=== PATIENT | female | born 1950 | race Caucasian/White ===

== ENCOUNTER 2021-07-03 10:34 | Outpatient (CLI) | payer MEDICARE | END 2021-07-03 10:35 | disposition home or self-care (01) | LOC: BICMAMMO 10:34 | PROVIDERS: ATTEND Physician Assistant | DX: Z12.31 Encounter for screening mammogram for malignant neoplasm of breast (principal) | CPT/HCPCS: 77063; 77067 ==

== ENCOUNTER 2022-09-07 09:28 | Outpatient (CLI) | payer MEDICARE | END 2022-09-07 09:29 | disposition home or self-care (01) | LOC: BICMAMMO 09:28 | PROVIDERS: ATTEND Physician Assistant | DX: Z12.31 Encounter for screening mammogram for malignant neoplasm of breast (principal); Z80.3 Family history of malignant neoplasm of breast | CPT/HCPCS: 77063; 77067 ==

== ENCOUNTER 2023-10-10 09:03 | Outpatient (CLI) | payer MEDICARE | END 2023-10-10 09:04 | disposition home or self-care (01) | LOC: BICMAMMO 09:03 | PROVIDERS: ATTEND Physician Assistant | DX: Z12.31 Encounter for screening mammogram for malignant neoplasm of breast (principal); Z80.3 Family history of malignant neoplasm of breast | CPT/HCPCS: 77063; 77067 ==

== ENCOUNTER 2024-07-09 07:53 | Outpatient (CLI) | payer MEDICARE | END 2024-07-09 07:54 | disposition home or self-care (01) | LOC: CT 07:53 | PROVIDERS: ATTEND Orthopaedic Surgery | DX: M17.12 Unilateral primary osteoarthritis, left knee (principal) ==

== ENCOUNTER 2024-07-12 10:04 | Outpatient (CLI) | payer MEDICARE ==
[2024-07-12 12:12] LABS: #Basophils 0.06 10x3/uL (0.0-0.2); %Basophils 0.8 % (0.0-1.0); %Eosinophils 1.4 % (0.0-10.0); %Lymphocytes 22.1 % (21.0-51.0); %Monocytes 6.7 % (0.0-10.0); Hemoglobin 13.1 g/dL (12.0-16.0); Mean Corpuscular Hemoglobin 28.1 pg (27.0-31.0); Mean Corpuscular Volume 87.8 fL (78.0-98.0); Mean Platelet Volume 9.3 fL (7.4-10.4); Platelet Count 306 10x3/uL (130-400); RBC Distribution Width 14.5 % (11.5-14.5); Red Blood Cell (RBC) Count 4.67 mill/uL (4.20-5.40)
[2024-07-12 12:20] LABS: Bilirubin Negative (Negative); Blood, Urine Negative (Negative); Clarity Clear (Clear); Glucose, Urine (Dipstick) Normal (Negative); Ketone, Urine Negative (Negative); Leukocyte Negative Leu/uL (Negative); Nitrite Negative (Negative); Protein, Urine (Dipstick) Negative (Neg-Trace); Specific Gravity, Urine 1.002 (1.002-1.036); Urobilinogen Normal mg/dL (Less than 2)
[2024-07-12 12:26] LABS: INR-International Normal Ratio 0.9; Prothrombin Time 12.1 sec (12.0-14.7)
[2024-07-12 12:29] LABS: Anion Gap 16 mmol/L (10-20); BUN (Urea Nitrogen) 10 mg/dL (9.8-20.1); Calc. Creatinine Clearance 0 mL/min (70-130); Calcium 8.9 mg/dL (7.8-10.44); Carbon Dioxide 23 mmol/L (23-31); Chloride 102 mmol/L (98-107); Estimated GFR 81; Glucose 104 mg/dL (83-110); Potassium 3.6 mmol/L (3.5-5.1); Sodium 137 mmol/L (136-145)
== END 2024-07-12 10:05 | disposition home or self-care (01) ==
LOC: LABBT 10:04
PROVIDERS: ATTEND Orthopaedic Surgery
DX: Z01.818 Encounter for other preprocedural examination (principal); M17.0 Bilateral primary osteoarthritis of knee; I70.0 Atherosclerosis of aorta
CPT/HCPCS: 71046; 80048; 81003; 85025; 85610; 87081; 93005; 93010

== ENCOUNTER 2024-07-16 09:59 | Observation (INO) | payer MEDICARE ==
[2024-07-12 10:26] VITALS: BMI 29.2
[2024-07-16] MEDS ORDERED: Tranexamic Acid 1,000 MG/10 ML VIAL ONE (10:56)
[2024-07-16] MEDS ORDERED: Vancomycin 1 GM/200 ML (FROZEN) BAG ONE (10:56)
[2024-07-16] MEDS ORDERED: Sodium Chloride 0.9% 100 ML ONE (10:57)
[2024-07-16] MEDS ORDERED: Famotidine/PF 20 mg/2ml Vial ONE (11:05)
[2024-07-16] MEDS ORDERED: Acetaminophen 500 MG TAB ONE (11:05)
[2024-07-16] MEDS ORDERED: fentaNYL 50 mcg/mL 1 mL Vial ONE ×3 (11:08→14:33)
[2024-07-16] MEDS ORDERED: Bupivacaine PF 0.5% 30 ML VIAL ONE (11:09)
[2024-07-16] MEDS ORDERED: Midazolam HCl 2 mg/2 ml Vial ONE (11:09)
[2024-07-16] MEDS ORDERED: Bupivacaine 0.25% HCL 30 ML VIAL ONE (11:25)
[2024-07-16] MEDS ORDERED: Bupivacaine HCl 0.5%/Epinephrine 1:200,000/PF 30 ml Vial ONE (11:30)
[2024-07-16] MEDS ORDERED: Lidocaine 1% (PF) 30 ML VIAL ONE (11:33)
[2024-07-16] MEDS ORDERED: methylPREDNISolone Acetate 40 mg/ml Vial ONE (11:34)
[2024-07-16] MEDS ORDERED: fentaNYL 50 mcg/mL 1 mL Vial SLOW IVP PRN (11:45)
[2024-07-16] MEDS ORDERED: Ondansetron PF 4 MG/2 ML Vial IVP PRN ×2 (11:45→13:29)
[2024-07-16] MEDS ORDERED: Ropivacaine 0.2% 550 ML 550 ML NERVE BLCK SCH (11:45)
[2024-07-16] MEDS ORDERED: Zolpidem Tartrate 5 MG TAB PO PRN ×2 (11:45→13:29)
[2024-07-16] MEDS ORDERED: traMADol HCl 50 MG TAB PO PRN ×2 (11:45)
[2024-07-16] MEDS ORDERED: Promethazine HCl 25 MG/ML VIAL IM PRN ×2 (11:45→13:29)
[2024-07-16] MEDS ORDERED: CEFAZOLIN 2 GM VIAL ONE (11:48)
[2024-07-16] MEDS ORDERED: PROPOFOL 20 ML ONE (11:50)
[2024-07-16] MEDS ORDERED: Lidocaine 1% PF 5 ML VIAL ONE (11:51)
[2024-07-16] MEDS ORDERED: Ondansetron PF 4 MG/2 ML Vial ONE (11:51)
[2024-07-16] MEDS ORDERED: Dexamethasone 4 mg/ml Vial ONE (11:51)
[2024-07-16] MEDS ORDERED: fentaNYL PF 100 MCG/2 ML SYRINGE ONE (12:10)
[2024-07-16] MEDS ORDERED: ePHEDrine Sulfate 50 MG/10 ML VIAL ONE (12:15)
[2024-07-16] MEDS ORDERED: Acetaminophen 325 MG TAB PO PRN (13:29)
[2024-07-16] MEDS ORDERED: diphenhydrAMINE 25 MG CAP PO PRN (13:29)
[2024-07-16] MEDS ORDERED: ALPRAZolam 1 MG TAB PO PRN (13:30)
[2024-07-16] MEDS: CEFAZOLIN 2 GM in Sodium Chloride 0.9% 100 ML IVPB SCH ×2 (18:14→20:50)
[2024-07-16] MEDS: Tranexamic Acid 1,000 MG in Sodium Chloride 0.9% 100 ML IVPB SCH (18:14)
[2024-07-16] MEDS: Gabapentin 300 MG CAP PO SCH (18:14)
[2024-07-16] MEDS: Ketorolac Tromethamine 30 MG (1 mL) VIAL IVP SCH (18:16)
[2024-07-16] MEDS: HYDROcodone/Acetaminophen 10/325 mg Tablet PO PRN ×2 (18:16→23:48)
[2024-07-16] MEDS: Sodium Chloride 0.9% 1,000 ML IV SCH (18:52)
[2024-07-16] MEDS: Senokot S 8.6-50 MG TAB PO SCH (20:51)
[2024-07-16] MEDS: Aspirin 81 mg Enteric Coated Tablet PO SCH (20:51)
[2024-07-16] MEDS: Rosuvastatin 10 MG TAB PO SCH (20:51)
[2024-07-16] MEDS: Vancomycin (BATCH) 1.5 GM in Premix 1 BAG IVPB SCH (23:47)
[2024-07-17 05:36] LABS: Hematocrit 36.2 % (36.0-47.0); Hemoglobin 11.6 g/dL (12.0-16.0); Mean Corpuscular Hemoglobin 28.2 pg (27.0-31.0); Mean Corpuscular Volume 88.1 fL (78.0-98.0); Mean Platelet Volume 8.9 fL (7.4-10.4); Platelet Count 312 10x3/uL (130-400); RBC Distribution Width 14.1 % (11.5-14.5); Red Blood Cell (RBC) Count 4.11 mill/uL (4.20-5.40)
[2024-07-17] MEDS: Multivitamin W/ Minerals 1 TAB PO SCH (09:09)
[2024-07-17] MEDS: Ferrous Gluconate 324 MG TAB PO SCH (09:09)
[2024-07-17] MEDS: CO Q-10 CAPSULE 100 MG PO SCH (09:09)
[2024-07-17] MEDS: Pantoprazole DR 40 MG TAB PO SCH (09:09)
[2024-07-17 11:48] VITALS: BP 107/70; TEMP 97.6
== END 2024-07-17 13:30 | disposition home or self-care (01) ==
LOC: SDC 09:59 → SURG B 17:02 → INTOOBSV 17:02
PROVIDERS: ADMIT Orthopaedic Surgery; ATTEND Orthopaedic Surgery
PROC: 0SRD0JZ Replacement of Left Knee Joint with Synthetic Substitute, Open Approach (ICD-10-PCS; principal; 2024-07-16)
PROC: 3E0T3BZ Introduction of Anesthetic Agent into Peripheral Nerves and Plexi, Percutaneous Approach (ICD-10-PCS; 2024-07-16)
PROC: 3E0U33Z Introduction of Anti-inflammatory into Joints, Percutaneous Approach (ICD-10-PCS; 2024-07-16)
DX: M17.0 Bilateral primary osteoarthritis of knee (principal); M54.16 Radiculopathy, lumbar region; E78.00 Pure hypercholesterolemia, unspecified; H40.9 Unspecified glaucoma; Z87.891 Personal history of nicotine dependence; Z79.899 Other long term (current) drug therapy
CPT/HCPCS: 0055T; 20610; 27447; 64448; 36415; 85027; A4306; C1713; C1776; C1889; J0665; J1010; J1100; J1885; J2250; J2405; J2704; J2795; J3010; J3370; J3370-JW; J3490; J7030

== ENCOUNTER 2024-10-24 08:25 | Outpatient (CLI) | payer MEDICARE | END 2024-10-24 08:26 | disposition home or self-care (01) | LOC: BICMAMMO 08:25 | PROVIDERS: ATTEND Physician Assistant | DX: Z12.31 Encounter for screening mammogram for malignant neoplasm of breast (principal); Z80.3 Family history of malignant neoplasm of breast | CPT/HCPCS: 77063; 77067 ==